=== PATIENT | male | born 1990 | race African-American/Black ===

== ENCOUNTER 2020-08-13 20:40 | Emergency (ER) | payer SELFPAY ==
[~2020-08-13] VITALS: Ht 180.3 cm; Wt 73.0 kg
[2020-08-13] MEDS ORDERED: HYDROCODONE/ACETAMINOPHEN 5/325MG TABLET PO ONE (22:15)
[2020-08-13] MEDS ORDERED: BACITRACIN ZINC OINT UDPKT TOP ONE (22:15)
[2020-08-13] MEDS ORDERED: TETANUS, DIPHTHERIA, PERTUSSIS VAC/PF 0.5ML (>7YR OLD) IM ONE (22:15)
[2020-08-13] MEDS ORDERED: LIDOCAINE 1%/EPI 1:100,000 10 ML VIAL IJ ONE (22:15)
[2020-08-13 22:28] VITALS: BP 138/65
== END 2020-08-14 01:00 | disposition home or self-care (01) ==
LOC: ER 20:40
DX: S02.2XXA Fracture of nasal bones, initial encounter for closed fracture (principal); W50.1XXA Accidental kick by another person, initial encounter; Y93.89 Activity, other specified; Y92.89 Other specified places as the place of occurrence of the external cause; Y99.8 Other external cause status
CPT/HCPCS: 12011; 70486; 90471; 90715; 99284; J3490